=== PATIENT | female | born 1965 | race Asian ===

== ENCOUNTER 2022-04-09 12:56 | Outpatient (CLI) | payer BC, SELFPAY ==
--- NOTE | 2022-04-09 13:00 | CRLHL7_ITS ---
For Patients: As a result of the Century Cures Act, medical imaging exams and procedure reports are released immediately into your electronic medical record. You may view this report before your referring provider. If you have questions, please contact your health care provider. Indication: solitary pulmonary nodule Technique: Noncontrast CT chest Please note that all CT scans at this facility use dose modulation, iterative reconstruction, and/or weight-based dosing when appropriate to reduce radiation dose to as low as reasonably achievable. Comparison: 03/28/2021 Findings: On the axial images, 17 x 14 millimeter nodule within the left lower lobe appears similar but on the coronal image, the craniocaudad dimension is now 12 millimeters compared to 10-11 millimeters on the prior exam. Stable ground-glass nodule within the superior segment of the right lower lobe measuring 5 millimeters, 3/35. Linear scarring within the lingula and right middle lobe again noted. No pleural effusion. No acute infiltrate. No pulmonary edema or pneumothorax. No adenopathy. No fracture. Impression: Mild increased size of the left lower lobe nodule in the craniocaudad dimension compared to the prior exam. Similar 5 millimeter ground-glass nodule superior segment right lower lobe. Please note that all CT scans at this facility use dose modulation, iterative reconstruction, and/or weight-based dosing when appropriate to reduce radiation dose to as low as reasonably achievable. Dictated by Jose Carter MD @ 04/09/2022 1:38:38 PM (Electronically Signed)
--- NOTE | 2022-04-09 14:00 | CRLHL7_ITS ---
For Patients: As a result of the Cures Act, medical imaging exams and procedure reports are released immediately into your electronic medical record. You may view this report before your referring provider. If you have questions, please contact your health care provider. BILATERAL DIGITAL SCREENING MAMMOGRAM WITH COMPUTER-AIDED DETECTION AND TOMOSYNTHESIS, 04/09/2022 CLINICAL HISTORY: Routine screening exam. COMPARISON: 01/15/2021, 12/20/2019, 10/11/2018. TECHNIQUE: Digital mammogram in CC and MLO projections including computer-aided detection (CAD) and tomosynthesis. BREAST COMPOSITION: Heterogeneously dense. FINDINGS: RIGHT Breast: Focal nodular density within the lower inner quadrant 3 cm from the nipple, probable lymph node. LEFT Breast: No suspicious findings. IMPRESSION: RIGHT breast asymmetry/mass. RECOMMENDATIONS: RIGHT breast ultrasound recommended. The [facility] will contact the patient for follow-up. BI-RADS Category 0: Incomplete: Need Additional Imaging Evaluation and/or Prior Mammograms for Comparison Dictated by Jose Carter MD @ 04/10/2022 8:30:54 AM JR/Dictated by: Jose Carter MD @ 04/10/2022 8:30:00 AM (Electronically Signed)
== END 2022-04-09 12:57 | disposition home or self-care (01) ==
PROVIDERS: PCP Emergency Medicine; Visit Provider Internal Medicine
DX: R91.1 Solitary pulmonary nodule (principal); Z12.31 Encounter for screening mammogram for malignant neoplasm of breast; N63.10 Unspecified lump in the right breast, unspecified quadrant; R92.2 Inconclusive mammogram
CPT/HCPCS: 71250; 77063; 77067

== ENCOUNTER 2022-04-16 10:04 | Outpatient (CLI) | payer BC, SELFPAY ==
--- NOTE | 2022-04-16 10:15 | CRLHL7_ITS ---
For Patients: As a result of the Century Cures Act, medical imaging exams and procedure reports are released immediately into your electronic medical record. You may view this report before your referring provider. If you have questions, please contact your health care provider. RIGHT BREAST ULTRASOUND CLINICAL HISTORY: RIGHT breast mass/asymmetry. COMPARISON: Mammogram 04/09/2022. TECHNIQUE: Real-time ultrasound imaging of RIGHT breast with imaging documentation. FINDINGS: Targeted sonogram RIGHT breast 4 o`clock 1 cm from the nipple performed. In this location there is a solid and cystic nodule measuring 5 x 5 x 6 millimeters. No abnormal vascularity. The margins are lobular. IMPRESSION: Indeterminate solid and cystic structure RIGHT breast 4 o`clock 1 cm from the nipple, possible complicated cyst. RECOMMENDATIONS: Ultrasound-guided core needle biopsy recommended for further evaluation. Results and recommendations were discussed with the patient at the time of the exam. BI-RADS Category 4: Suspicious A lay language report of this examination will be provided to the patient. Dictated by Jose Carter MD @ 04/16/2022 11:59:49 AM/den GAIL/Dictated by: Jose Carter MD @ 04/16/2022 11:59:00 AM (Electronically Signed)
== END 2022-04-16 10:05 | disposition home or self-care (01) ==
LOC: US 10:05
PROVIDERS: PCP Emergency Medicine; Visit Provider Emergency Medicine
DX: N63.10 Unspecified lump in the right breast, unspecified quadrant (principal); R92.8 Other abnormal and inconclusive findings on diagnostic imaging of breast
CPT/HCPCS: 76642

== ENCOUNTER 2022-04-24 09:58 | Outpatient (CLI) | payer BC, SELFPAY ==
--- NOTE | 2022-04-24 10:15 | CRLHL7_ITS ---
For Patients: As a result of the Century Cures Act, medical imaging exams and procedure reports are released immediately into your electronic medical record. You may view this report before your referring provider. If you have questions, please contact your health care provider. IMPRESSION: Pathology consistent with benign cystic tissue without atypia or malignancy. This is concordant. Resume annual BILATERAL screening mammography. Dictated by: Jose Carter MD @04/30/2022 11:06:43 AM ULTRASOUND-GUIDED BREAST BIOPSY AND POST-BIOPSY DIGITAL MAMMOGRAM FOR BIOPSY MARKER PLACEMENT CLINICAL HISTORY: Solid and cystic nodule RIGHT breast. COMPARISON STUDIES: Ultrasound 04/16/2022, mammogram 04/09/2022. TECHNIQUE: Real-time ultrasound with image documentation was used for targeting the breast lesion. Core biopsy specimens were obtained using an automated gun with a 18-gauge biopsy needle. Post-biopsy CC and ML digital mammograms were obtained to document position of the biopsy marker. CONSENT and TIME OUT: The procedure, risks, and alternatives were explained to the patient and a consent was signed. [place] Protocol was followed including pre-procedure verification that relevant information/documentation was available, reviewed and properly matched to the patient; consent accurate and complete; and equipment and supplies available. Time Out was conducted just prior to starting procedure to verify the four required elements: patient identity, correct side/site marked (if applicable), procedure, relevant images/results properly labeled and displayed (if applicable). PROCEDURE: The patient was positioned supine on the ultrasound table. The breast was prepped with ChloraPrep. 6 cc of 1 percent lidocaine used for local anesthesia. Core samples were obtained. A sterile metal biopsy clip was placed percutaneously to jeremy the lesion position within the breast. The specimens were placed in 10% formalin and sent to the pathology department. Pressure was held on the biopsy site until all bleeding subsided. The skin incision was closed with Steri-Strips. An ice pack was positioned over the biopsy site. Post-biopsy instructions were reviewed with the patient, and a written copy was given to her. LATERALITY: RIGHT breast. LESION: Solid and cystic nodule measuring 6 x 5 x 5 millimeters at 4 o`clock 1 cm from the nipple. SUSPICION FOR MALIGNANCY: Low. NUMBER OF SAMPLES: 5. BIOPSY CLIP SHAPE: Oval. PROXIMITY OF CLIP TO TARGET: Within the lesion. IMPRESSION: Ultrasound-guided breast biopsy. When the pathology report is available, an addendum to this report will be made. ACR not applicable Dictated by Jose Carter MD @ 04/24/2022 10:58:26 AM/den GAIL/Dictated by: Jose Carter MD @ 04/24/2022 10:58:00 AM Signed by: Jose Carter @ 04/24/2022 3:03:34 PM (Electronic Signature) (Electronically Signed)
--- NOTE | 2022-04-24 11:00 | CRLHL7_ITS ---
For Patients: As a result of the Century Cures Act, medical imaging exams and procedure reports are released immediately into your electronic medical record. You may view this report before your referring provider. If you have questions, please contact your health care provider. PLEASE SEE RIGHT ULTRASOUND-GUIDED BIOPSY OF SAME DAY. CRL:den GAIL/Dictated by: Jose Carter MD @ 04/24/2022 10:58:00 AM (Electronically Signed)
== END 2022-04-24 09:59 | disposition home or self-care (01) ==
LOC: MAMMO 10:00
PROVIDERS: PCP Emergency Medicine; Visit Provider Emergency Medicine
DX: N60.01 Solitary cyst of right breast (principal); N63.10 Unspecified lump in the right breast, unspecified quadrant; R92.8 Other abnormal and inconclusive findings on diagnostic imaging of breast
CPT/HCPCS: 19083; 77065; 88305; A4648; A4649

== ENCOUNTER 2022-12-17 13:00 | Outpatient (RCR) | payer BC, OTHER, SELFPAY | END 2023-03-05 16:42 | disposition home or self-care (01) | PROVIDERS: PCP Emergency Medicine; Visit Provider Emergency Medicine | DX: M22.2X1 Patellofemoral disorders, right knee (principal); Z51.89 Encounter for other specified aftercare | CPT/HCPCS: 97110; 97140; 97161; 97530 ==

== ENCOUNTER 2024-01-26 08:08 | Outpatient (CLI) | payer OTHER, SELFPAY | END 2024-01-26 08:09 | disposition home or self-care (01) | LOC: NFLDREF 01-27 14:09 | PROVIDERS: PCP Emergency Medicine; Referring Provider Emergency Medicine; Visit Provider Physician Assistant Medical | DX: Z00.00 Encounter for general adult medical examination without abnormal findings (principal); R73.03 Prediabetes; E78.5 Hyperlipidemia, unspecified; Z13.29 Encounter for screening for other suspected endocrine disorder | CPT/HCPCS: 80053; 80061; 84443 ==

== ENCOUNTER 2024-04-18 13:46 | Outpatient (CLI) | payer OTHER, SELFPAY ==
--- NOTE | 2024-04-18 13:40 | CRLHL7_ITS ---
For Patients: As a result of the Century Cures Act, medical imaging exams and procedure reports are released immediately into your electronic medical record. You may view this report before your referring provider. If you have questions, please contact your health care provider. BILATERAL SCREENING MAMMOGRAM WITH COMPUTER-AIDED DETECTION AND TOMOSYNTHESIS TECHNIQUE: CC and MLO views were obtained. These mammographic images have been obtained using full-field digital technique. These mammographic images were interpreted with the benefit of computer-aided detection. Breast Tomosynthesis was used in this interpretation. COMPARISON FILM: 04/09/22, 01/15/21, 12/20/19. FINDINGS: The breasts are heterogeneously dense, which may obscure small masses IMPRESSION: There is no radiographic evidence for malignancy. ASSESSMENT: BI-RADS Category 2: Benign RECOMMENDATION: Routine screening mammogram in 1 year. A lay language report of this examination will be provided to the patient. Jose Carter M.D. Diagnostic Radiologist [email or web address] TOMÁS/juan r / bM/Dictated by: Jose Carter MD @ 04/21/2024 8:25:00 AM (Electronically Signed)
== END 2024-04-18 13:47 | disposition home or self-care (01) ==
PROVIDERS: PCP Physician Assistant Medical; Visit Provider Physician Assistant Medical
DX: Z12.31 Encounter for screening mammogram for malignant neoplasm of breast (principal); R92.333 Mammographic heterogeneous density, bilateral breasts
CPT/HCPCS: 77063; 77067

== ENCOUNTER 2024-12-09 13:10 | Outpatient (CLI) | payer OTHER, SELFPAY ==
--- NOTE | 2024-12-09 13:00 | CRLHL7_ITS ---
For Patients: As a result of the Century Cures Act, medical imaging exams and procedure reports are released immediately into your electronic medical record. You may view this report before your referring provider. If you have questions, please contact your health care provider. Indication: Palpable lump Technique: Grayscale and color Doppler ultrasound of the right upper arm soft tissues performed in the area of concern. Comparison: None Findings: Nonvascular isoechoic mass within the subcutaneous fat measures 5.3 x 1.7 x 4.3 cm. Impression: Subcutaneous lipoma measures 5.3 cm. Dictated by Jose Carter MD @ 12/09/2024 2:57:56 PM (Electronically Signed)
== END 2024-12-09 13:11 | disposition home or self-care (01) ==
PROVIDERS: PCP Physician Assistant Medical; Visit Provider Surgery
DX: R22.30 Localized swelling, mass and lump, unspecified upper limb (principal); D17.21 Benign lipomatous neoplasm of skin and subcutaneous tissue of right arm
CPT/HCPCS: 76882

== ENCOUNTER 2025-01-03 07:45 | Day surgery (SDC) | payer OTHER, SELFPAY ==
[2025-01-03] MEDS: LACTATED RINGERS 1000 ML 1,000 ML 100 ML IV (07:50)
[2025-01-03 07:55] VITALS: BMI 25.7
[2025-01-03 08:11] VITALS: BP 115/65; PULSE 46; RESP 16; TEMP 36.6; O2SAT 96
[2025-01-03] MEDS: SODIUM CHLORIDE 0.9 % (FLUSH) 10 ML SYRINGE IVF (08:21)
--- NOTE | 2025-01-03 08:37 | P.GSOP_ITS ---
Operative Note Date of procedure: 01/03/25 Pre-op diagnosis: 1. Enlarging right upper arm mass. Post-op diagnosis: 1. Right upper arm lipoma Type of Procedure: 1. Excision of right upper arm lipoma 6 x 4.2 cm. Indications: 59-year-old female was seen in clinic for evaluation of enlarging right upper arm mass. Patient initially noticed this mass 5 years ago. With time it has been increasing in size and became more noticeable. Patient denied the pain in the mass. On clinical exam in the right anterior mid arm there was a vertically oriented soft tissue mass that was measuring 5 x 3.5 cm the borders of the mass were difficult to define and it seemed deeper than subcutaneous layer. An ultrasound was obtained that showed well circumscribed lipoma in subcutaneous fat. Given patient's clinical history and enlarging nature of this mass, excision under MAC and local anesthesia was recommended. The procedure was discussed in detail. The risks associated procedure including infection, bleeding, and mass recurrence were all discussed with the patient, and she agreed to proceed. Procedure Description: After discussing the risks and benefits of the procedure, the patient signed informed consent.? The operative site was marked and the patient was brought to the operating room and placed on the operating table in supine position.? Care was taken to pad the patient's pressure points.?? The patient was then sedated by anesthesia.?? The operative site was then prepped and draped in the usual sterile fashion.? A time-out was then performed. Local anesthetic was injected at the surgical site or the palpable mass. A vertical skin incision was made with a scalpel. Subcutaneous fat was divided with cautery until the mass was identified. The mass was dissected from subcutaneous fat bluntly and with cautery. The mass was lying over the muscle fascia but not invading the fascia. The mass was excised and had an appearance of lipoma. It was measuring 6 x 4.2 cm. This was sent to pathology. Hemostasis achieved with cautery. Subcutaneous fat was reapproximated with int errupted 2-0 Vicryl sutures. The dermis was reapproximated with interrupted 3-0 Vicryl sutures. The skin was closed with a running 4-0 Monocryl stitch. Steri- Strips were placed over the incision. Sterile gauze was placed over the incision and the right upper arm was wrapped with an Antonino wrap. All counts were correct at the end of the case. ? The patient was then woken and transported to the recovery area in stable condition. ? The patient tolerated the procedure well. Findings: 6 x 4.2 cm lipoma lying over the deltoid muscle but not invading it. Anesthesia: MAC and local Surgeon: Tony Rojas MD Estimated blood loss (mL): 2 Additional Specimen Information: 1. Right upper arm mass. Condition: stable Disposition: same day
--- NOTE | 2025-01-03 08:37 | W.PM.H&PU ---
History & Physical Update History & Physical Update H&P Reviewed and patient assessed: No changes noted
--- NOTE | 2025-01-03 08:46 | P.ANES_ITS ---
Anesthesia Charges Start Date/Time Anesthesia Start Date: 01/03/25 Anesthesia Start Time: 08:54 Stop Date/Time Anesthesia Stop Date: 01/03/25 Anesthesia Stop Time: 09:34 Coding CPT Codes CPT Codes: ANESTH SKIN EXT/PER/ATRUNK - 06714 ([id number]) P2 - PATIENT W/MILD SYST DISEASE, QK - CRUISE DIRECTOR 2-4 CNCRNT ANES PROC, QX - SUBSTANCE ABUSE RN SVC W/ MD MED DIRECTION
--- NOTE | 2025-01-03 08:46 | W.ANESCHARGE ---
Anesthesia Charges Start Date/Time Anesthesia Start Date: 01/03/25 Anesthesia Start Time: 08:54 Stop Date/Time Anesthesia Stop Date: 01/03/25 Anesthesia Stop Time: 09:34 Coding CPT Codes CPT Codes: ANESTH SKIN EXT/PER/ATRUNK - 29539 ([id number]) P2 - PATIENT W/MILD SYST DISEASE, QK - BULK PIGMENT REDUCER 2-4 CNCRNT ANES PROC, QX - RUSTIC TERRAZZO SETTER SVC W/ MD MED DIRECTION
[2025-01-03] MEDS: CLINDAMYCIN 900 MG/50 ML-D5W IVPB (09:03)
[2025-01-03] MEDS: LIDOCAINE 1%-EPI 1:100,000 20 ML INFILTRATI (09:12)
[2025-01-03] MEDS: BUPIVACAINE 0.25% 30 ML INJECTION (09:12)
[2025-01-03 09:30] VITALS: BP 108/63; PULSE 55; RESP 16; TEMP 36.6; O2SAT 96
--- NOTE | 2025-01-03 09:33 | P.ANES_ITS ---
Anesthesia Charges Start Date/Time Anesthesia Start Date: 01/03/25 Anesthesia Start Time: 08:54 Stop Date/Time Anesthesia Stop Date: 01/03/25 Anesthesia Stop Time: 09:34 Coding CPT Codes CPT Codes: ANESTH SKIN EXT/PER/ATRUNK - 81510 ([id number]) P2 - PATIENT W/MILD SYST DISEASE, QK - COUNTER SERVER 2-4 CNCRNT ANES PROC, QX - COMMISSION SALES ASSOCIATE SVC W/ MD MED DIRECTION
--- NOTE | 2025-01-03 09:33 | W.ANESCHARGE ---
Anesthesia Charges Start Date/Time Anesthesia Start Date: 01/03/25 Anesthesia Start Time: 08:54 Stop Date/Time Anesthesia Stop Date: 01/03/25 Anesthesia Stop Time: 09:34 Coding CPT Codes CPT Codes: ANESTH SKIN EXT/PER/ATRUNK - 24946 ([id number]) P2 - PATIENT W/MILD SYST DISEASE, QK - CHEMIST PROTEINS 2-4 CNCRNT ANES PROC, QX - HEAD HOST/HOSTESS SVC W/ MD MED DIRECTION
[2025-01-03 09:45] VITALS: BP 101/59; PULSE 46; RESP 16; O2SAT 98
[2025-01-03 10:00] VITALS: BP 157/77; PULSE 46; RESP 16; O2SAT 97
[2025-01-03 10:15] VITALS: BP 120/73; PULSE 49; RESP 16; O2SAT 98
== END 2025-01-03 10:28 | disposition home or self-care (01) ==
PROVIDERS: PCP Physician Assistant Medical; Visit Provider Surgery
PROC: (CPT 24071; principal; 2025-01-03 09:15)
DX: D17.21 Benign lipomatous neoplasm of skin and subcutaneous tissue of right arm (principal)
CPT/HCPCS: 24071; 00400; 88304; J0665; J0736; J1100; J2405; J2704; J3010; J7120

== ENCOUNTER 2025-01-30 09:27 | Outpatient (CLI) | payer OTHER, SELFPAY | END 2025-01-30 09:28 | disposition home or self-care (01) | LOC: NFLDREF 02-01 15:55 | PROVIDERS: PCP Physician Assistant Medical; Visit Provider Physician Assistant Medical | DX: E78.2 Mixed hyperlipidemia (principal); R73.03 Prediabetes; F32.0 Major depressive disorder, single episode, mild | CPT/HCPCS: 80053; 80061; 84443 ==

== ENCOUNTER 2025-02-15 15:23 | Outpatient (CLI) | payer OTHER, SELFPAY ==
--- NOTE | 2025-02-15 15:30 | CRLHL7_ITS ---
For Patients: As a result of the Century Cures Act, medical imaging exams and procedure reports are released immediately into your electronic medical record. You may view this report before your referring provider. If you have questions, please contact your health care provider. INDICATION: Hearing loss TECHNIQUE: Non-contrast sagittal T1, axial FLAIR, FSE T2, DWI, posterior fossa CISS images provided. Supplemental post contrast T1 weighted axial and coronal high resolution images through the posterior fossa with fat saturation and post contrast whole head axial T1 weighted images submitted. No comparisons. 15 cc of Dotarem was administered intravenously. FINDINGS: The ventricles, sulci and gyri are of normal size, shape and contour for age. Midline structures are centrally located. No convincing evidence of suspicious intra- or extra-axial fluid collections. No regions of restricted diffusion. Expected flow-voids within the cavernous carotids and basilar artery. No suspicious masses within the internal auditory canals. No suspicious regions of abnormal parenchymal enhancement. IMPRESSION: 1. No radiographic evidence of acute intracranial abnormalities. Dictated by Mega Krishna MD @ 02/17/2025 4:21:44 PM (Electronically Signed)
== END 2025-02-15 15:24 | disposition home or self-care (01) ==
LOC: MRI 15:24
PROVIDERS: PCP Physician Assistant Medical; Visit Provider Physician Assistant
DX: H91.90 Unspecified hearing loss, unspecified ear (principal)
CPT/HCPCS: 70553; A9575

== ENCOUNTER 2025-04-24 15:30 | Outpatient (CLI) | payer OTHER, SELFPAY ==
--- NOTE | 2025-04-24 15:20 | CRLHL7_ITS ---
For Patients: As a result of the Century Cures Act, medical imaging exams and procedure reports are released immediately into your electronic medical record. You may view this report before your referring provider. If you have questions, please contact your health care provider. INDICATION: BILATERAL SCREENING MAMMOGRAM, ASYMPTOMATIC 59 Y/O FEMALE COMPARISON: 04/18/2024, 04/09/2022, 01/15/2021 TECHNIQUE: Digital mammogram in CC and MLO projections including computer-aided detection (CAD) and tomosynthesis. BREAST COMPOSITION: There are scattered areas of fibroglandular density. FINDINGS: No suspicious findings. ASSESSMENT: BI-RADS 1 Negative RECOMMENDATION: Annual screening mammogram. A lay language report of this examination will be provided to the patient. Dictated by: Jose Carter MD @ 04/25/2025 08:44:43 (Electronically Signed)
== END 2025-04-24 15:31 | disposition home or self-care (01) ==
LOC: MAMMO 15:30
PROVIDERS: PCP Physician Assistant Medical; Visit Provider Physician Assistant Medical
DX: Z12.31 Encounter for screening mammogram for malignant neoplasm of breast (principal)
CPT/HCPCS: 77063; 77067